=== PATIENT | male | born 1995 ===

== ENCOUNTER 2020-05-07 20:05 | Outpatient (REF) | payer MEDICAID, SELFPAY ==
[2020-05-07 21:59] LABS: ALT 16 U/L (16-63); AST 16 U/L (15-37); Albumin 4.4 g/dL (3.4-5.0); Alkaline Phosphatase 71 U/L (46-116); Anion Gap 10.1 mmol/L (3-11); BUN 16 mg/dL (7-18); Bilirubin, Total 0.4 mg/dL (0.2-1.0); CO2 26.9 mmol/L (21.0-32.0); CREATININE 0.94 mg/dL (0.70-1.30); Calcium 8.9 mg/dL (8.5-10.1); Chloride 102 mmol/L (98-107); Glucose 84 mg/dL (74-106); Potassium 4.2 mmol/L (3.5-5.1); Sodium 139 mmol/L (136-145)
== END 2020-05-07 20:25 ==
LOC: NCHCN 20:05
PROVIDERS: PCP Nurse Practitioner Family; Visit Provider Nurse Practitioner Family
DX: F11.21 Opioid dependence, in remission (principal)
CPT/HCPCS: 80053

== ENCOUNTER 2020-06-06 18:26 | Outpatient (REF) | payer MEDICAID, SELFPAY ==
[2020-06-06 21:05] LABS: Abs Immature Grans 0.02 10^3/uL (0.0-0.06); Absolute Basophil Count 0.06 10^3/uL (0.0-0.2); Absolute Eosinophil Count 0.14 10^3/uL (0.0-0.7); Absolute Lymphocyte Count 1.82 10^3/uL (1.2-3.4); Absolute Monocyte Count 0.78 10^3/uL (0.1-0.8); Absolute Neutrophil Count 4.35 10^3/uL (1.2-6.7); Basophils % 0.8; HCT 44.9 % (40.0-50.0); HGB 15.8 g/dL (13.5-17.5); Immature Grans % 0.3; Lymphocytes % 25.4; MCH 32.6 pg (27.0-33.0); MCHC 35.2 % (32.0-36.0); MCV 92.6 fL (80-95); MPV 9.5 fL (8.0-11.0); Monocytes % 10.9; Neutrophils % 60.6; Nucleated RBC 0 %; Platelet Count 261 10^3/uL (130-400); RBC 4.85 10^6/uL (4.36-5.78); RDW 12.2 % (11.8-14.1); RDW-SD 41.9 fL; WBC 7.17 10^3/uL (4.4-10.8)
[2020-06-06 21:45] LABS: TSH (W/Ref FT4) 1.49 uIU/mL (0.36-3.74); Vitamin B12 496 pg/mL (193-986); Vitamin D 25 Total 28.4 ng/ml (30-100)
== END 2020-06-06 18:46 ==
LOC: NCHCN 18:26
PROVIDERS: PCP Nurse Practitioner Family; Visit Provider Nurse Practitioner Family
DX: F32.9 Major depressive disorder, single episode, unspecified (principal)
CPT/HCPCS: 82306; 82607; 84443; 85025